=== PATIENT | male | born 1990 | race Two or more races ===

== ENCOUNTER 2016-12-16 11:40 | Day surgery (SDC) | payer BC, OTHER ==
[2016-12-16] MEDS ORDERED: ceFAZolin 2 GM/50 ML 50 ML IV ONE (12:14)
[2016-12-16] MEDS ORDERED: LACTATED RINGERS 1,000 ML IV ONE ×2 (12:16→16:12)
[2016-12-16] MEDS ORDERED: BUPIVACAINE 0.5% PF 30 ML VIAL INFIL ONE (14:08)
[2016-12-16] MEDS ORDERED: DEXAMETHASONE 4 MG/ML VIAL IVP ONE (14:20)
[2016-12-16] MEDS ORDERED: LIDOCAINE-MPF 2% 5 ML VIAL IM ONE (14:20)
[2016-12-16] MEDS ORDERED: ONDANSETRON 4 MG/2 ML VIAL IVP ONE (14:20)
[2016-12-16] MEDS ORDERED: ACETAMINOPHEN 1000 MG/100 ML IV ONE (14:20)
[2016-12-16] MEDS ORDERED: KETOROLAC 30 MG/ML VIAL IVP ONE (14:20)
[2016-12-16] MEDS ORDERED: PROPOFOL 200 MG/20 ML VIAL IVP ONE (14:20)
[2016-12-16] MEDS ORDERED: fentaNYL 100 MCG/2 ML VIAL IVP ONE (14:20)
--- NOTE | 2016-12-16 16:16 | OPERATIVE REPORT ---
Operative Report - General Planned Procedure: Bilateral inguinal herniorrhaphy Pre-Op Diagnosis: Bilateral inguinal hernia (right much larger than left) Procedure Performed: Bilateral inguinal herniorrhaphy with mesh (right much larger than left) (RIGHT - Bard Mesh Perfix Plug Ref#[id number], Lot#[id number], use by 2021-03-17) (LEFT - Bard Mesh Perfix Plug Ref#[id number], Lot#[id number], use by 2021-09-14) Excision bilateral cord lipoma Right hydrocelectomy - Procedure Note Primary Surgeon: David Anesthesia Provider: Olga Kiran Anesthesia Technique: General LMA, Local (60 mL 1/2% marcaine) IV Fluids (mL): 1,400 Estimated Blood Loss (mL): 10 Complications: None. - Other Other Information/Narrative: OPERATIVE DESCRIPTION/REPORT: After verbal and written informed consent was obtained detailing the risks of infection, bleeding requiring transfusion with its risks, nerve injury, and , and after I met with the patient confirming the surgery and the site of the surgery and after initialing the site of the surgery with a surgical marker , the patient was brought to the operative suite and placed supine on the operating table. Great care was taken to avoid pressure points to prevent pressure necrosis or nerve injury. Monitoring devices were applied along with TEDs and pneumatic compressive stockings (to prevent DVT). The patient received preoperative antibiotics for surgical prophylaxis. [place] sedated and anethetized the patient for the entire procedure. The patient was prepped and draped in the usual sterile manner. With the patient draped my initials were clearly visible. A "time in" then confirmed that the paitient was identified with 3 identifiers (name, date and medical record number), the history and physical was in the chart, the signed consent confirming the procedure was in the chart, the patient was in the correct position, the aforementioned prophylactic measures were in place or given, we had the correct personnel and equipment to complete the procedure and that anesthesia, surgery and nursing were given an opportunity to express any concerns. With the agreement of everyone in the room, we proceeded with the operation. Due to its size, the right side was addressed first. A standard inguinal incision was made and dissection was carried down to the external oblique aponeurosis using a combination of Metzenbaum scissors and Bovie electrocautery. The external oblique aponeurosis was cleared of overlying adherent tissue, and the external ring was delineated. Due to the size of the hernia the external ring was widely dilated. The external oblique was the incised with a scalpel and this incision was carried out to the external ring using Metzenbaum scissors. Having exposed the inguinal canal, the cord structures were from the canal using blunt dissection, and a Gordon drain was placed around the cord structures at the level of the pubic tubercle. This Gordon drain was then used to retract the cord structures as needed. Adherent cremasteric muscle was dissected free from the cord using Bovie electrocautery. The cord was then explored using a combination of sharp and blunt dissection, and the sac was found anteromedially to the cord structures. The sac extended into the scrotum and was contiguous with a right sided hydrocele. The sac was carefully dissected from the testes and the sac dissected back to the internal ring. The sac was very large. The sac was dissected free from the cord structures using a combination of blunt dissection and Bovie electrocautery. Once preperitoneal fat was encountered, the dissection stopped and the sac was high ligated with a 2-0 PDS, transected, the stump cauterized and allowed to retract back into the abdominal cavity. Dissection along the cord structures found a lipoma that was dissected back to the internal ring, ligated with a 3-0 Vicryl, transected, the stump cauterized and allowed to retract back into the abdomen. An extra-large Bard Perfix plug was inserted into the internal ring. The plug was secured to the internal ring by interrupted 2-0 PDS sutures. The Bard Perfix enlay patch was then placed on the floor of the inguinal canal and secured in place using interrupted 0 PDS sutures to the conjoined tendon superiorly, pubic tubercle medially, and shelving edge inferiorly. By reinforcing the floor with the enlay patch, a new internal ring was thus formed. The Michell drain was removed. The wound was then irrigated using sterile saline, and hemostasis was obtained using Bovie electrocautery. The incision in the external oblique was approximated using a 3-0 Vicryl in a running fashion , thus reforming the external ring. The fascia and skin was then injected with the 1/2% marcaine for residential pain control. The skin incision was approximated with 4-0 Monocryl in a subcuticular fashion. At this point the left side was addressed. A standard inguinal incision was made and dissection was carried down to the external oblique aponeurosis using a combination of Metzenbaum scissors and Bovie electrocautery. The external oblique aponeurosis was cleared of overlying adherent tissue, and the external ring was delineated. The external oblique was the incised with a scalpel and this incision was carried out to the external ring using Metzenbaum scissors. Having exposed the inguinal canal, the cord structures were from the canal using blunt dissection, and a Gordon drain was placed around the cord structures at the level of the pubic tubercle. This Gordon drain was then used to retract the cord structures as needed. Adherent cremasteric muscle was dissected free from the cord using Bovie electrocautery. The cord was then explored using a combination of sharp and blunt dissection, and the sac was found anteromedially to the cord structures. The sac was dissected free from the cord structures using a combination of blunt dissection and Bovie electrocautery. Dissection along the cord structures found a lipoma that was dissected back to the internal ring, ligated with a 3-0 Vicryl, transected, the stump cauterized and allowed to retract back into the abdomen. Once preperitoneal fat was encountered, the dissection stopped and the sac was high ligated with a 2-0 PDS, transected, the stump cauterized and allowed to retract back into the abdominal cavity and a large Bard Perfix plug inserted into the internal ring. The plug was secured to the internal ring by interrupted 2-0 PDS sutures. The Bard Perfix enlay patch was then placed on the floor of the inguinal canal and secured in place using interrupted 0 PDS sutures to the conjoined tendon superiorly, pubic tubercle medially, and shelving edge inferiorly. By reinforcing the floor with the enlay patch, a new internal ring was thus formed. The Michell drain was removed. The wound was then irrigated using sterile saline, and hemostasis was obtained using Bovie electrocautery. The incision in the external oblique was approximated using a 3-0 Vicryl in a running fashion , thus reforming the external ring. The fascia and skin was then injected with the 1/2% marcaine for residential pain control. The skin incision was approximated with 4-0 Monocryl in a subcuticular fashion. The skin at both sites was prepped with benzoin and steristrips were applied. At this point a time out was performed that confirmed that all the counts were correct, the procedure that was performed, the blood loss, the IV fluids administered, and the patients condition. A dressing was then applied. Gentle downward traction ensured that the testes were well seated in the scrotum. Having tolerated the procedure well, the patient was taken to PACU in good and stable condition.
[2016-12-16] MEDS: fentaNYL 100 MCG/2 ML VIAL ONE ×2 (16:45→16:53)
[2016-12-16 17:01] VITALS: BP 144/95
== END 2016-12-16 11:41 | disposition home or self-care (01) ==
LOC: SDS 11:40
PROVIDERS: ATTEND Surgery
PROC: 0VBF0ZZ Excision of Right Spermatic Cord, Open Approach (ICD-10-PCS; 2016-12-16)
PROC: 0YUA0JZ Supplement Bilateral Inguinal Region with Synthetic Substitute, Open Approach (ICD-10-PCS; principal; 2016-12-16 13:00)
DX: K40.20 Bilateral inguinal hernia, without obstruction or gangrene, not specified as recurrent (principal); D17.6 Benign lipomatous neoplasm of spermatic cord; N43.3 Hydrocele, unspecified; Z87.891 Personal history of nicotine dependence
CPT/HCPCS: 49505; C1781; J0131; J0690; J7120